=== PATIENT | female | born 1965 | race American Indian/Alaskan Native ===

== ENCOUNTER 2019-03-02 11:28 | Emergency (ER) | payer OTHER ==
[2019-03-02 11:43] VITALS: BP 132/81
--- NOTE | 2019-03-02 11:43 | Event Note ---
ED Screening Note Date of service: 03/02/19 Time: 11:39 ED Screening Note: This is a 53 y.o. F. that presents to the ER with swelling and pain to distal left 3rd finger for 3 days. Warm soaks with peroxide and alcohol with no improvement of symptoms. Reports worsening pain. No sure if she injured finger. PMH of HTN and HIV This initial assessment/diagnostic orders/clinical plan/treatment(s) is/are subject to change based on patients health status, clinical progression and re-assessment by fellow clinical providers in the ED. Further treatment and workup at subsequent clinical providers discretion. Patient/guardian urged not to elope from the ED as their condition may be serious if not clinically assessed and managed. Initial orders include: XR left fingers
--- NOTE | 2019-03-02 13:37 | XRay Report ---
LEFT FINGERS HISTORY: Swelling of the distal third digit. COMPARISON: None. TECHNIQUE: 3 views of the left middle finger were obtained. Additional views of the rest of the digit s are also included. FINDINGS: Bones: No fracture or dislocation. Joint spaces: Maintained. Soft tissues: Mild soft tissue swelling of the terminal tuft of the middle finger. No soft tissue air or foreign body. Additional findings: None. IMPRESSION: 1. Soft tissue inflammation of the distal middle finger and no bone or joint abnormality. 2. No foreign body or signs of gas producing infection. Signer Name: Lamont Alvarado MD Signed: 03/02/2019 1:33 PM Workstation Name: [id number]
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
== END 2019-03-02 15:16 | disposition home or self-care (01) ==
LOC: ED 11:28
DX: L03.012 Cellulitis of left finger (principal); F17.200 Nicotine dependence, unspecified, uncomplicated; Z21 Asymptomatic human immunodeficiency virus [HIV] infection status; Z98.890 Other specified postprocedural states; Z79.899 Other long term (current) drug therapy

== ENCOUNTER 2021-01-06 06:00 | Emergency (ER) | payer SELFPAY ==
[2021-01-06] MEDS ORDERED: IBUPROFEN 800 MG TAB PO ONE (07:40)
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
[2021-01-06 09:27] VITALS: BP 146/84
== END 2021-01-06 09:27 | disposition home or self-care (01) ==
LOC: ED 06:00
DX: S39.012A Strain of muscle, fascia and tendon of lower back, initial encounter (principal); S13.4XXA Sprain of ligaments of cervical spine, initial encounter; I10 Essential (primary) hypertension; F17.200 Nicotine dependence, unspecified, uncomplicated; F12.90 Cannabis use, unspecified, uncomplicated; Z72.89 Other problems related to lifestyle; Z98.890 Other specified postprocedural states; Z79.899 Other long term (current) drug therapy; V89.2XXA Person injured in unspecified motor-vehicle accident, traffic, initial encounter; Y93.89 Activity, other specified; Y92.488 Other paved roadways as the place of occurrence of the external cause; Y99.8 Other external cause status
CPT/HCPCS: 72040; 72100; 99284

== ENCOUNTER 2021-02-24 19:53 | Emergency (ER) | payer OTHER ==
[2021-02-24 20:14] VITALS: BP 137/84
--- NOTE | 2021-02-24 23:03 | Emergency Department Report ---
ED General Adult HPI - General Chief complaint: Wound/Laceration Stated complaint: SPIDER BITE Source: patient Mode of arrival: Ambulatory Limitations: No Limitations - History of Present Illness Initial comments: Patient is a 55-year-old -[place] female with no past medical history presents to the ED with complaint of acute onset painful swollen erythematous maculopapular rash on posterior right lower leg for the last 1 week. Patient states that she suspects that she may have been bitten by a spider which she did not identify or see. Patient states that in the last 3 days the rash opened up and has been draining thick purulent discharge. Patient denies numbness and tingling or weakness of right leg, dizziness, syncope, fever, chills, nausea, vomiting, chest pain or shortness of breath. MD Complaint: Painful, swollen, erythematous maculopapular rash on right lower leg -: Sudden, week(s) (1) Location: lower extremity (Right lower leg pain due to erythematous maculopapular rash) Radiation: non-radiation Severity scale (0 -10): 6 Quality: aching, sharp Consistency: constant Improves with: none Worsens with: movement Associated Symptoms: denies other symptoms, rash (Erythematous maculopapular nonfluctuant painful mildly swollen rash on right lower leg). denies: confusion, chest pain, cough, diaphoresis, fever/chills, headaches, loss of appetite, malaise, nausea/vomiting, shortness of breath, syncope, weakness Treatments Prior to Arrival: none - Related Data Previous Rx's Medication Instructions Recorded Last Taken Type Acetaminophen/Codeine [Tylenol 1 tab PO Q6H PRN #12 tab 03/02/19 Unknown Rx /Codeine # 3 tab] Cyclobenzaprine [Flexeril] 10 mg PO QHS PRN #10 tablet 01/06/21 Unknown Rx Naproxen 500 mg PO Q12H PRN #12 tablet 01/06/21 Unknown Rx Ibuprofen [Motrin] 800 mg PO Q8HR PRN #30 tablet 02/24/21 Unknown Rx Sulfamethoxazole/Trimethoprim 1 each PO Q12H #20 tablet 02/24/21 Unknown Rx [Bactrim DS TAB] Allergies Allergy/AdvReac Type Severity Reaction Status Date / Time No Known Allergies Allergy Unverified 02/13/16 10:27 ED Review of Systems ROS: Stated complaint: SPIDER BITE Other details as noted in HPI Constitutional: denies: chills, fever Eyes: denies: eye pain, eye discharge, vision change ENT: denies: ear pain, throat pain Respiratory: denies: cough, shortness of breath, wheezing Cardiovascular: denies: chest pain, palpitations Endocrine: no symptoms reported Gastrointestinal: denies: abdominal pain, nausea, diarrhea Genitourinary: denies: urgency, dysuria, discharge Musculoskeletal: arthralgia (Right lower leg pain due to erythematous maculopapular nonfluctuant rash). denies: back pain, joint swelling Skin: rash (Erythematous maculopapular painful mildly swollen nonfluctuant rash on right lower leg). denies: lesions Neurological: denies: headache, weakness, paresthesias Psychiatric: denies: anxiety, depression Hematological/Lymphatic: denies: easy bleeding, easy bruising ED Past Medical Hx - Past Medical History Previous Medical History?: Yes Hx Hypertension: Yes Hx HIV: Yes (anti-virals) Additional medical history: HIV - Surgical History Past Surgical History?: Yes Additional Surgical History: - Social History Smoking Status: Current Every Day Smoker Substance Use Type: Alcohol, Marijuana - Medications Home Medications: Home Medications Medication Instructions Recorded Confirmed Last Taken Type Acetaminophen/Codeine [Tylenol 1 tab PO Q6H PRN #12 tab 03/02/19 Unknown Rx /Codeine # 3 tab] Cyclobenzaprine [Flexeril] 10 mg PO QHS PRN #10 tablet 01/06/21 Unknown Rx Naproxen 500 mg PO Q12H PRN #12 tablet 01/06/21 Unknown Rx Ibuprofen [Motrin] 800 mg PO Q8HR PRN #30 tablet 02/24/21 Unknown Rx Sulfamethoxazole/Trimethoprim 1 each PO Q12H #20 tablet 02/24/21 Unknown Rx [Bactrim DS TAB] ED Physical Exam - General Limitations: No Limitations General appearance: alert, in no apparent distress - Head Head exam: Present: atraumatic, normocephalic, normal inspection - Eye Eye exam: Present: normal appearance, PERRL, EOMI Pupils: Present: normal accommodation - ENT ENT exam: Present: normal exam, normal orophraynx, mucous membranes moist, TM's normal bilaterally, normal external ear exam - Neck Neck exam: Present: normal inspection, full ROM - Respiratory Respiratory exam: Present: normal lung sounds bilaterally. Absent: respiratory distress, wheezes, rales, rhonchi, chest wall tenderness, accessory muscle use, decreased breath sounds - Cardiovascular Cardiovascular Exam: Present: regular rate, normal rhythm, normal heart sounds. Absent: systolic murmur, diastolic murmur, rubs, gallop - GI/Abdominal GI/Abdominal exam: Present: soft, normal bowel sounds. Absent: tenderness, hyperactive bowel sounds, hypoactive bowel sounds, organomegaly - Extremities Exam Extremities exam: Present: normal inspection, full ROM, tenderness (Palpable mild right lower leg tenderness due to erythematous maculopapular nonfluctuant rash), normal capillary refill. Absent: calf tenderness - Back Exam Back exam: Present: normal inspection, full ROM. Absent: tenderness, CVA tenderness (R), CVA tenderness (L), muscle spasm, vertebral tenderness - Neurological Exam Neurological exam: Present: alert, oriented X3, CN II-XII intact, normal gait, reflexes normal - Psychiatric Psychiatric exam: Present: normal affect, normal mood - Skin Skin exam: Present: warm, dry, intact, normal color, rash (Erythematous maculopapular nonfluctuant mildly swollen tender rash on posterior right lower leg) ED Course Vital Signs 02/24/21 20:13 Temperature 98.1 F Pulse Rate 78 Respiratory 16 Rate Blood Pressure 137/84 [Left] O2 Sat by Pulse 98 Oximetry ED Medical Decision Making - Medical Decision Making This is a 55-year-old -[place] female with no past medical history presents to the ED with complaint of acute onset painful swollen erythematous maculopapular rash on posterior right lower leg for the last 1 week. Patient states that she suspects that she may have been bitten by a spider which she did not identify or see. Patient states that in the last 3 days the rash opened up and has been draining thick purulent discharge. In the ED, patient is alert and oriented x3 and is not in any distress. Patient is hemodynamically stable. The swollen mildly tender rash is nonfluctuant with mild erythema around it. Patient was therefore discharged home on pain medications and antibiotics and advised to follow-up with her primary care physician in 7 to 10 days for reevaluation or return to the ED immediately if symptoms get worse. - Differential Diagnosis Cellulitis; folliculitis; cutaneous abscess Critical care attestation.: If time is entered above; I have spent that time in minutes in the direct care of this critically ill patient, excluding procedure time. ED Disposition Clinical Impression: Cellulitis of right lower extremity, Acute folliculitis, Cutaneous abscess of right lower extremity Disposition: HOME / SELF CARE / HOMELESS Is pt being admited?: No Does the pt Need Aspirin: No Condition: Stable Instructions: Cellulitis, Adult, [id number], Skin Abscess, [id number], Folliculitis Additional Instructions: Take medication with food, drink plenty of fluids and follow-up with your primary care physician in 7 to 10 days for reevaluation. Return to the ED immediately if symptoms get worse. Prescriptions: Sulfamethoxazole/Trimethoprim [Bactrim DS TAB] 1 each PO Q12H #20 tablet Ibuprofen [Motrin] 800 mg PO Q8HR PRN #30 tablet PRN Reason: Pain , Severe (7-10) Referrals: [facility] [Provider Group] - 7-10 days Time of Disposition: 23:03 Print Language: SYRIAC
== END 2021-02-25 03:19 | disposition home or self-care (01) ==
LOC: ED 19:53
DX: L03.115 Cellulitis of right lower limb (principal); L73.9 Follicular disorder, unspecified
CPT/HCPCS: 99281

== ENCOUNTER 2021-06-22 13:20 | Emergency (ER) | payer SELFPAY ==
[2021-06-22 13:24] VITALS: BP 154/99
[2021-06-22] MEDS ORDERED: HYDROcodone/ACETAMINOPHEN 5-325 MG TAB PO ONE (13:28)
--- NOTE | 2021-06-22 14:33 | XRay Report ---
LEFT ANKLE 3 VIEWS INDICATION / CLINICAL INFORMATION: L ankle PAIN COMPARISON: None available. FINDINGS: BONES and JOINT(S): No acute fracture or subluxation. No significant arthritis. SOFT TISSUES: No significant abnormality. ADDITIONAL FINDINGS: None. IMPRESSION: 1. No acute findings. LEFT FOOT 3 VIEWS INDICATION / CLINICAL INFORMATION: L ankle PAIN COMPARISON: None available. FINDINGS: BONES and JOINT(S): No acute fracture or subluxation. No significant arthritis. SOFT TISSUES: No significant abnormality. ADDITIONAL FINDINGS: None. IMPRESSION: 1. No acute findings. Signer Name: Carl Metz MD Signed: 06/22/2021 2:29 PM Workstation Name: [id number]
--- NOTE | 2021-06-22 16:09 | Emergency Department Report ---
ED Lower Extremity HPI - General Chief Complaint: Extremity Injury, Lower Stated Complaint: LEFT FOOT PAIN Time Seen by Provider: 06/22/21 13:27 Source: patient, EMS Mode of arrival: Stretcher Limitations: No Limitations - History of Present Illness MD Complaint: foot injury -: Sudden, days(s) Injury: Ankle: Left, Foot: Left Type of Injury: inversion Place: other Severity: moderate Severity scale (0 -10): 5 Improves With: nothing Worsens With: nothing - Related Data Previous Rx's Medication Instructions Recorded Last Taken Type Acetaminophen/Codeine [Tylenol 1 tab PO Q6H PRN #12 tab 03/02/19 Unknown Rx /Codeine # 3 tab] Cyclobenzaprine [Flexeril] 10 mg PO QHS PRN #10 tablet 01/06/21 Unknown Rx Naproxen 500 mg PO Q12H PRN #12 tablet 01/06/21 Unknown Rx Ibuprofen [Motrin] 800 mg PO Q8HR PRN #30 tablet 02/24/21 Unknown Rx Sulfamethoxazole/Trimethoprim 1 each PO Q12H #20 tablet 02/24/21 Unknown Rx [Bactrim DS TAB] Ketorolac [Toradol] 10 mg PO Q6H PRN #14 06/22/21 Unknown Rx Allergies Allergy/AdvReac Type Severity Reaction Status Date / Time No Known Allergies Allergy Unverified 02/13/16 10:27 ED Review of Systems ROS: Stated complaint: LEFT FOOT PAIN Other details as noted in HPI Constitutional: denies: chills, fever Eyes: denies: eye pain, eye discharge, vision change ENT: denies: ear pain, throat pain Respiratory: denies: cough, shortness of breath, wheezing Cardiovascular: denies: chest pain, palpitations Endocrine: no symptoms reported Gastrointestinal: denies: abdominal pain, nausea, diarrhea Genitourinary: denies: urgency, dysuria, discharge Musculoskeletal: denies: back pain, joint swelling, arthralgia Skin: denies: rash, lesions Neurological: denies: headache, weakness, paresthesias Psychiatric: denies: anxiety, depression Hematological/Lymphatic: denies: easy bleeding, easy bruising ED Past Medical Hx - Past Medical History Hx Hypertension: Yes Hx HIV: Yes (anti-virals) Additional medical history: HIV - Surgical History Additional Surgical History: - Social History Smoking Status: Current Every Day Smoker Substance Use Type: Alcohol, Marijuana - Medications Home Medications: Home Medications Medication Instructions Recorded Confirmed Last Taken Type Acetaminophen/Codeine [Tylenol 1 tab PO Q6H PRN #12 tab 03/02/19 Unknown Rx /Codeine # 3 tab] Cyclobenzaprine [Flexeril] 10 mg PO QHS PRN #10 tablet 01/06/21 Unknown Rx Naproxen 500 mg PO Q12H PRN #12 tablet 01/06/21 Unknown Rx Ibuprofen [Motrin] 800 mg PO Q8HR PRN #30 tablet 02/24/21 Unknown Rx Sulfamethoxazole/Trimethoprim 1 each PO Q12H #20 tablet 02/24/21 Unknown Rx [Bactrim DS TAB] Ketorolac [Toradol] 10 mg PO Q6H PRN #14 06/22/21 Unknown Rx ED Physical Exam - General Limitations: No Limitations General appearance: alert, in no apparent distress - Head Head exam: Present: atraumatic, normocephalic - Eye Eye exam: Present: normal appearance - ENT ENT exam: Present: mucous membranes moist - Neck Neck exam: Present: normal inspection - Respiratory Respiratory exam: Present: normal lung sounds bilaterally. Absent: respiratory distress - Cardiovascular Cardiovascular Exam: Present: regular rate, normal rhythm. Absent: systolic murmur, diastolic murmur, rubs, gallop - GI/Abdominal GI/Abdominal exam: Present: soft, normal bowel sounds - Extremities Exam Extremities exam: Present: normal inspection - Back Exam Back exam: Present: normal inspection - Neurological Exam Neurological exam: Present: alert, oriented X3 - Psychiatric Psychiatric exam: Present: normal affect, normal mood - Skin Skin exam: Present: warm, dry, intact, normal color. Absent: rash ED Course Vital Signs 06/22/21 13:23 Temperature 98.7 F Pulse Rate 88 Respiratory 14 Rate Blood Pressure 154/99 [Left] O2 Sat by Pulse 99 Oximetry - Reevaluation(s) Reevaluation #1: 06/22/21 16:07 refused blood , x ray negative pain controlled Critical care attestation.: If time is entered above; I have spent that time in minutes in the direct care of this critically ill patient, excluding procedure time. ED Disposition Clinical Impression: Left ankle sprain Disposition: HOME / SELF CARE / HOMELESS Is pt being admited?: No Does the pt Need Aspirin: No Condition: Stable Instructions: How to Use a Stirrup Ankle Brace, [id number], Ankle Sprain, Phase I Rehab-SportsMed Referrals: TRINIDAD BROWN MD [Primary Care Provider] - 3-5 Days
== END 2021-06-22 16:28 | disposition home or self-care (01) ==
LOC: ED 13:20
DX: S93.402A Sprain of unspecified ligament of left ankle, initial encounter (principal); X58.XXXA Exposure to other specified factors, initial encounter; Y93.89 Activity, other specified; Y92.89 Other specified places as the place of occurrence of the external cause; Y99.8 Other external cause status; I10 Essential (primary) hypertension; B20 Human immunodeficiency virus [HIV] disease; Z98.890 Other specified postprocedural states
CPT/HCPCS: 99283

== ENCOUNTER 2021-09-15 18:37 | Emergency (ER) | payer SELFPAY ==
[2021-09-15] MEDS ORDERED: MORPHINE 4 MG/1 ML INJ IV ONE (21:01)
--- NOTE | 2021-09-15 21:09 | Event Note ---
ED Screening Note Date of service: 09/18/21 Time: 21:09 ED Screening Note: 56-year-old female presents to the clinic with low back pain. Patient states that she has been laying supine for the last 3 days unable to sit up upright. Patient stated 3 days ago she had a ground-level fall. Patient states that she also states that she had sex later that day and unsure which one cause her to injury her back . Patient states that she has been using a bucket to urinate. She states pain is a 10 out of 10. This initial assessment/diagnostic orders/clinical plan/treatment(s) is/are subject to change based on patients health status, clinical progression and re- assessment by fellow clinical providers in the ED. Further treatment and workup at subsequent clinical providers discretion. Patient/guardian urged not to elope from the ED as their condition may be serious if not clinically assessed and managed. Initial orders include:
[2021-09-15] MEDS ORDERED: KETOROLAC 30 MG/1 ML INJ IV ONE (21:30)
[2021-09-15] MEDS ORDERED: HYDROmorphone 0.5 MG/0.5 ML INJ IV ONE (21:31)
[2021-09-15] MEDS ORDERED: SODIUM CHLORIDE 0.9% 1000 ML 1,000 ML IV ONE (21:31)
--- NOTE | 2021-09-15 21:56 | Emergency Department Report ---
ED Back Pain/Injury HPI - General Chief Complaint: Back Pain/Injury Stated Complaint: BACK PAIN Time Seen by Provider: 09/15/21 21:16 Source: patient, EMS Limitations: No Limitations - History of Present Illness Initial Comments: 56-year-old female the past medical history of HIV with undetectable viral load currently on antiretrovirals and hypertension presents to the hospital complaining of right lower back pain for the last 3 days feels like a muscle spasm. Pain is 10/10 intensity worse with movement, palpation, and ambulation. For the past 3 days patient has been lying on her floor unable to get up secondary to pain and has been urinating in a bucket nearby. She denies lower extremity numbness, weakness, or incontinence. She denies history of previous significant back injury, chronic pain, IV drug abuse, or fever. Patient received fentanyl in route with temporary relief and received additional morphine prior to my evaluation and states pain is somewhat improving. The day prior to pain onset patient had 2 separate incidents that might have caused injury. While walking her dog she stepped off a curb after it ran into the street and fell forward landing on her stomach. She did not endorse back pain and was able to walk immediately afterwards. That evening she had intercourse with her partner and tried a new sexual physician called the "Pelican". She was uncomfortable during that position but did not have immediate pain and returned to her residence. The next morning she had pain with inability to get up for the past 3 days and laid on the floor until today. - Related Data Previous Rx's Medication Instructions Recorded Last Taken Type Acetaminophen/Codeine [Tylenol 1 tab PO Q6H PRN #12 tab 03/02/19 Unknown Rx /Codeine # 3 tab] Cyclobenzaprine [Flexeril] 10 mg PO QHS PRN #10 tablet 01/06/21 Unknown Rx Ibuprofen [Motrin] 800 mg PO Q8HR PRN #30 tablet 02/24/21 Unknown Rx Sulfamethoxazole/Trimethoprim 1 each PO Q12H #20 tablet 02/24/21 Unknown Rx [Bactrim DS TAB] Ketorolac [Toradol] 10 mg PO Q6H PRN #14 06/22/21 Unknown Rx Cyclobenzaprine HCl [Flexeril 5 MG 5 mg PO TID PRN #20 tab 09/16/21 Unknown Rx TAB] HYDROcodone/APAP 5-325 [[place] 1 each PO Q6HR PRN #15 tablet 09/16/21 Unknown Rx 5/325] Naproxen 500 mg PO Q12H PRN #30 tablet 09/16/21 Unknown Rx Nitrofurantoin Barry/M-Cryst 100 mg PO BID #10 capsule 09/16/21 Unknown Rx [Macrobid CAP] Allergies Allergy/AdvReac Type Severity Reaction Status Date / Time No Known Allergies Allergy Unverified 02/13/16 10:27 ED Review of Systems ROS: Stated complaint: BACK PAIN Other details as noted in HPI Comment: All other systems reviewed and negative ED Past Medical Hx - Past Medical History Hx Hypertension: Yes Hx HIV: Yes (anti-virals) Additional medical history: HIV - Surgical History Additional Surgical History: - Social History Smoking Status: Current Every Day Smoker Substance Use Type: Alcohol, Marijuana - Medications Home Medications: Home Medications Medication Instructions Recorded Confirmed Last Taken Type Acetaminophen/Codeine [Tylenol 1 tab PO Q6H PRN #12 tab 03/02/19 Unknown Rx /Codeine # 3 tab] Cyclobenzaprine [Flexeril] 10 mg PO QHS PRN #10 tablet 01/06/21 Unknown Rx Ibuprofen [Motrin] 800 mg PO Q8HR PRN #30 tablet 02/24/21 Unknown Rx Sulfamethoxazole/Trimethoprim 1 each PO Q12H #20 tablet 02/24/21 Unknown Rx [Bactrim DS TAB] Ketorolac [Toradol] 10 mg PO Q6H PRN #14 06/22/21 Unknown Rx Cyclobenzaprine HCl [Flexeril 5 MG 5 mg PO TID PRN #20 tab 09/16/21 Unknown Rx TAB] HYDROcodone/APAP 5-325 [[place] 1 each PO Q6HR PRN #15 tablet 09/16/21 Unknown Rx 5/325] Naproxen 500 mg PO Q12H PRN #30 tablet 09/16/21 Unknown Rx Nitrofurantoin Barry/M-Cryst 100 mg PO BID #10 capsule 09/16/21 Unknown Rx [Macrobid CAP] ED Physical Exam - General Limitations: No Limitations - Other Other exam information: General: No acute distress Head: Atraumatic Eyes: normal appearance ENT: Moist mucous membranes Neck: Normal appearance, no midline tenderness Chest: Clear to auscultation bilaterally CV: Regular rate and rhythm Abdomen: Soft, normal bowel sounds, nontender, nondistended, no rebound or guarding Back: Right lower back paraspinal muscle tenderness extending down to pelvis Extremity: Normal inspection, full range of motion Neuro: Alert O x 3, no facial asymmetry, speech clear, no gross motor sensory deficit Psych: Appropriate behavior Skin: No rash ED Course Vital Signs 09/15/21 09/15/21 09/15/21 18:53 21:12 21:53 Temperature 98.6 F Pulse Rate 84 Respiratory 18 18 20 Rate Blood Pressure 148/98 [Left] O2 Sat by Pulse 99 Oximetry 09/16/21 09/16/21 00:57 02:24 Temperature Pulse Rate 74 Respiratory 16 98 H Rate Blood Pressure 127/84 [Left] O2 Sat by Pulse 16 L Oximetry - Reevaluation(s) Reevaluation #1: 09/16/21 00:03 Patient reassessed after receiving pain medication. Patient states she is feeling a lot better and able to sit up in bed 09/16/21 00:45 Patient still unable to ambulate secondary to pain even though pain has improved. Additional meds ordered ED Medical Decision Making - Lab Data Result diagrams: 09/15/21 22:04 09/15/21 22:04 Lab Results 09/15/21 09/15/21 09/15/21 Range/Units 22:04 22:04 23:17 WBC 8.1 (4.5-11.0) K/mm3 RBC 4.23 (3.65-5.03) M/mm3 Hgb 12.7 (10.1-14.3) gm/dl Hct 38.2 (30.3-42.9) % MCV 90 (79-97) fl MCH 30 (28-32) pg MCHC 33 (30-34) % RDW 13.1 L (13.2-15.2) % Plt Count 177 (140-440) K/mm3 Lymph % (Auto) 13.6 (13.4-35.0) % Barry % (Auto) 6.6 (0.0-7.3) % Eos % (Auto) 0.7 (0.0-4.3) % Baso % (Auto) 0.4 (0.0-1.8) % Lymph # (Auto) 1.1 L (1.2-5.4) K/mm3 Barry # (Auto) 0.5 (0.0-0.8) K/mm3 Eos # (Auto) 0.1 (0.0-0.4) K/mm3 Baso # (Auto) 0.0 (0.0-0.1) K/mm3 Seg Neutrophils % 78.7 H (40.0-70.0) % Seg Neutrophils # 6.4 (1.8-7.7) K/mm3 Sodium 138 (137-145) mmol/L Potassium 3.4 L (3.6-5.0) mmol/L Chloride 106.9 (98-107) mmol/L Carbon Dioxide 19 L (22-30) mmol/L Anion Gap 16 mmol/L BUN 13 (7-17) mg/dL Creatinine 0.8 (0.6-1.2) mg/dL Estimated GFR > 60 ml/min BUN/Creatinine Ratio 16 % Glucose 127 H (65-100) mg/dL Calcium 8.3 L (8.4-10.2) mg/dL Total Bilirubin 0.40 (0.1-1.2) mg/dL AST 17 (5-40) units/L ALT 10 (7-56) units/L Alkaline Phosphatase 54 (35-129) units/L Total Creatine Kinase 328 H (30-135) units/L Total Protein 7.3 (6.3-8.2) g/dL Albumin 2.9 L (3.9-5) g/dL Albumin/Globulin Ratio 0.7 % Urine Color Yellow (Yellow) Urine Turbidity Clear (Clear) Urine pH 5.0 (5.0-7.0) Ur Specific Roscoe 1.030 (1.003-1.030) Urine Protein 30 mg/dl (Negative) mg/dL Urine Glucose (UA) Neg (Negative) mg/dL Urine Ketones Neg (Negative) mg/dL Urine Blood Sm (Negative) Urine Nitrite Neg (Negative) Urine Bilirubin Neg (Negative) Urine Urobilinogen 2.0 (<2.0) mg/dL Ur Leukocyte Esterase Lg (Negative) Urine WBC (Auto) 21.0 H (0.0-6.0) /HPF Urine RBC (Auto) 5.0 (0.0-6.0) /HPF U Epithel Cells (Auto) 3.0 (0-13.0) /HPF Urine Bacteria (Auto) 1+ (Negative) /HPF Urine Mucus 1+ /HPF - Radiology Data Radiology results: report reviewed CT lumbar spine wo con INDICATION / CLINICAL INFORMATION: back pain after fall. TECHNIQUE: Axial CT imaging of the lumbar spine was obtained without contrast. Coronal and sagittal reformatted imaging obtained and reviewed. All CT scans at this location are performed using CT dose reduction for ALARA by means of automated exposure control. COMPARISON: Radiographs of the lumbar spine 01/06/2021 FINDINGS: No fracture of the lumbar spine. Visualized bilateral lower ribs are intact as well. Alignment is normal. Vertebral body heights and disc spaces are fairly well-maintained with the exception of some mild degenerative disc disease at L2-L3. This correlates with degenerative disc disease noted on prior radiographs, 01/06/2021. Moderate facet degenerative changes are seen throughout the spine with severe degenerative change noted at L5-S1. Mild central disc bulge is noted at L3-L4. No soft tissue abnormality is noted. IMPRESSION: 1. No lumbar spine fracture or traumatic malalignment is noted. 2. Mild degenerative disc disease, L2-L3. 3. Mild central disc bulge without encroachment on nerve roots is noted at L3- L4. - Medical Decision Making 56-year-old female presents to the hospital with right flank/lower back pain. Patient did not appear to have any significant traumatic injury based on history. CT does not reveal acute abnormality. No neurologic symptoms on examination. Pain improved with ED treatment. Urine positive for infection. Patient medicated with Macrobid. Will be treated for symptomatic pain relief for muscle strain as well as UTI abx. P.o. potassium provided in the ED for mild hypokalemia as per RN note pain 2/10 at time of discharge. pre discharge vital signs are reversed sat 98% and rr 16 - Differential Diagnosis Strain, contusion, fracture, herniated Critical Care Time: No Critical care attestation.: If time is entered above; I have spent that time in minutes in the direct care of this critically ill patient, excluding procedure time. ED Disposition Clinical Impression: Low back strain, UTI (urinary tract infection), Hypokalemia Disposition: 01 HOME / SELF CARE / HOMELESS Is pt being admited?: No Does the pt Need Aspirin: No Condition: Stable Instructions: Urinary Tract Infection, Adult, [id number], Lumbar Strain Additional Instructions: Take the medication as prescribed. Follow-up with your doctor or doctor/clinic provided. Return if symptoms worsen as indicated by your discharge instructions. Prescriptions: Cyclobenzaprine HCl [Flexeril 5 MG TAB] 5 mg PO TID PRN #20 tab PRN Reason: Muscle Spasm Nitrofurantoin Barry/M-Cryst [Macrobid CAP] 100 mg PO BID #10 capsule Naproxen 500 mg PO Q12H PRN #30 tablet PRN Reason: Pain , Severe (7-10) HYDROcodone/APAP 5-325 [[place] 5/325] 1 each PO Q6HR PRN #15 tablet PRN Reason: Pain Referrals: BIA GOMEZ II, MD [Staff Physician] - 3-5 Days (Neurosurgeon/back pain specialist) JENNIFER KWAN MD [Staff Physician] - 3-5 Days (Primary care doctor) [facility] [Provider Group] - 3-5 Days (Primary care clinic) Time of Disposition: 00:06
--- NOTE | 2021-09-15 22:03 | Cat Scan Report ---
CT lumbar spine wo con INDICATION / CLINICAL INFORMATION: back pain after fall. TECHNIQUE: Axial CT imaging of the lumbar spine was obtained without contrast. Coronal and sagittal reformatted imaging obtained and reviewed. All CT scans at this location are performed using CT dose reduction f or ALARA by means of automated exposure control. COMPARISON: Radiographs of the lumbar spine 01/06/2021 FINDINGS: No fracture of the lumbar spine. Visualized bilateral lower ribs are intact as well. Alignment is nor mal. Vertebral body heights and disc spaces are fairly well-maintained with the exception of some mil d degenerative disc disease at L2-L3. This correlates with degenerative disc disease noted on prior r adiographs, 01/06/2021. Moderate facet degenerative changes are seen throughout the spine with severe degenerative change not ed at L5-S1. Mild central disc bulge is noted at L3-L4. No soft tissue abnormality is noted. IMPRESSION: 1. No lumbar spine fracture or traumatic malalignment is noted. 2. Mild degenerative disc disease, L2-L3. 3. Mild central disc bulge without encroachment on nerve roots is noted at L3-L4. Signer Name: Camila Holguin MD Signed: 09/15/2021 9:58 PM Workstation Name: [id number]
[2021-09-15 22:21] LABS: Basophils % (Auto) 0.4 % (0.0-1.8); Eosinophils # (Auto) 0.1 K/mm3 (0.0-0.4); Eosinophils % (Auto) 0.7 % (0.0-4.3); Hematocrit 38.2 % (30.3-42.9); Hemoglobin 12.7 gm/dl (10.1-14.3); Lymphocytes # (Auto) 1.1 K/mm3 (1.2-5.4); Lymphocytes % (Auto) 13.6 % (13.4-35.0); Mean Corpuscular HGB Conc 33 % (30-34); Mean Corpuscular Volume 90 fl (79-97); Monocytes # (Auto) 0.5 K/mm3 (0.0-0.8); Monocytes % (Auto) 6.6 % (0.0-7.3); Platelet Count 177 K/mm3 (140-440); Red Blood Count 4.23 M/mm3 (3.65-5.03); Red Cell Distribution Width 13.1 % (13.2-15.2)
[2021-09-15 22:42] LABS: Alanine Aminotransferase 10 units/L (7-56); Albumin 2.9 g/dL (3.9-5); BUN/Creatinine Ratio 16; Blood Urea Nitrogen 13 mg/dL (7-17); Calcium 8.3 mg/dL (8.4-10.2); Hemolysis Index 5
[2021-09-15 23:39] LABS: Bacteria,Urine 1+ /HPF (Negative); Bilirubin,Urine NEG (Negative); Blood,Urine SM (Negative); Color,Urine Yellow (Yellow); Mucus,Urine 1+ /HPF
[2021-09-16] MEDS ORDERED: NITROFURANTOIN MONOHYD/M-CRYST 100 MG CAP PO ONE (00:02)
[2021-09-16] MEDS ORDERED: POTASSIUM CHLORIDE ER 20 MEQ TAB PO ONE (00:03)
[2021-09-16] MEDS ORDERED: HYDROmorphone 1 MG/1 ML INJ IV ONE (00:44)
[2021-09-16 02:25] VITALS: BP 127/84
== END 2021-09-16 02:25 | disposition home or self-care (01) ==
LOC: ED 18:37
DX: S39.012A Strain of muscle, fascia and tendon of lower back, initial encounter (principal); N39.0 Urinary tract infection, site not specified; E87.6 Hypokalemia; I10 Essential (primary) hypertension; Z21 Asymptomatic human immunodeficiency virus [HIV] infection status; Z79.899 Other long term (current) drug therapy; F17.200 Nicotine dependence, unspecified, uncomplicated; X58.XXXA Exposure to other specified factors, initial encounter; Y93.89 Activity, other specified; Y92.89 Other specified places as the place of occurrence of the external cause; Y99.8 Other external cause status
CPT/HCPCS: 36415; 72131; 80053; 81001; 82550; 85025; 87086; 96361; 96374; 96375; 96376; 99284; J1170; J1885; J2270; J7030

== ENCOUNTER 2021-10-13 19:09 | Emergency (ER) | payer SELFPAY ==
[2021-10-13] MEDS ORDERED: MORPHINE 4 MG/1 ML INJ IV ONE (21:21)
[2021-10-13] MEDS ORDERED: SODIUM CHLORIDE 0.9% 1000 ML 1,000 ML IV ONE (21:21)
[2021-10-13] MEDS ORDERED: ONDANSETRON 4 MG/2 ML INJ IV ONE (21:21)
--- NOTE | 2021-10-13 21:24 | Emergency Department Report ---
ED Abdominal Pain HPI - General Chief Complaint: Abdominal Pain Stated Complaint: ABD PAIN Time Seen by Provider: 10/13/21 21:12 Source: patient Mode of arrival: Stretcher Limitations: No Limitations - History of Present Illness Initial Comments: Patient is a 56-year-old female brought in from home by EMS with complaint of pain in her right mid abdomen and right lower quadrant beginning yesterday. She describes her pain as a sharp sensation. She denies any nausea or vomiting. No change in bowel habits or dysuria. No fever or chills. She denies any past abdominal surgical history - Related Data Previous Rx's Medication Instructions Recorded Last Taken Type Acetaminophen/Codeine [Tylenol 1 tab PO Q6H PRN #12 tab 03/02/19 Unknown Rx /Codeine # 3 tab] Cyclobenzaprine [Flexeril] 10 mg PO QHS PRN #10 tablet 01/06/21 Unknown Rx Ibuprofen [Motrin] 800 mg PO Q8HR PRN #30 tablet 02/24/21 Unknown Rx Sulfamethoxazole/Trimethoprim 1 each PO Q12H #20 tablet 02/24/21 Unknown Rx [Bactrim DS TAB] Ketorolac [Toradol] 10 mg PO Q6H PRN #14 06/22/21 Unknown Rx Cyclobenzaprine HCl [Flexeril 5 MG 5 mg PO TID PRN #20 tab 09/16/21 Unknown Rx TAB] HYDROcodone/APAP 5-325 [[place] 1 each PO Q6HR PRN #15 tablet 09/16/21 Unknown Rx 5/325] Naproxen 500 mg PO Q12H PRN #30 tablet 09/16/21 Unknown Rx Nitrofurantoin [place]/M-Cryst 100 mg PO BID #10 capsule 09/16/21 Unknown Rx [Macrobid CAP] bisacodyL [Dulcolax] 5 mg PO DAILY PRN #7 tab 10/14/21 Unknown Rx Allergies Allergy/AdvReac Type Severity Reaction Status Date / Time No Known Allergies Allergy Unverified 02/13/16 10:27 ED Review of Systems ROS: Stated complaint: ABD PAIN Other details as noted in HPI Comment: All other systems reviewed and negative Constitutional: denies: chills, fever Respiratory: denies: cough, shortness of breath, wheezing Cardiovascular: denies: chest pain, palpitations Gastrointestinal: abdominal pain. denies: nausea, diarrhea Genitourinary: denies: urgency, dysuria, discharge Musculoskeletal: denies: back pain, joint swelling, arthralgia Skin: denies: rash, lesions Neurological: denies: headache, weakness, paresthesias Psychiatric: denies: anxiety, depression ED Past Medical Hx - Past Medical History Previous Medical History?: Yes Hx Hypertension: Yes Hx HIV: Yes (anti-virals) Additional medical history: HIV - Surgical History Past Surgical History?: Yes Additional Surgical History: - Social History Smoking Status: Current Every Day Smoker Substance Use Type: None - Medications Home Medications: Home Medications Medication Instructions Recorded Confirmed Last Taken Type Acetaminophen/Codeine [Tylenol 1 tab PO Q6H PRN #12 tab 03/02/19 Unknown Rx /Codeine # 3 tab] Cyclobenzaprine [Flexeril] 10 mg PO QHS PRN #10 tablet 01/06/21 Unknown Rx Ibuprofen [Motrin] 800 mg PO Q8HR PRN #30 tablet 02/24/21 Unknown Rx Sulfamethoxazole/Trimethoprim 1 each PO Q12H #20 tablet 02/24/21 Unknown Rx [Bactrim DS TAB] Ketorolac [Toradol] 10 mg PO Q6H PRN #14 06/22/21 Unknown Rx Cyclobenzaprine HCl [Flexeril 5 MG 5 mg PO TID PRN #20 tab 09/16/21 Unknown Rx TAB] HYDROcodone/APAP 5-325 [[place] 1 each PO Q6HR PRN #15 tablet 09/16/21 Unknown Rx 5/325] Naproxen 500 mg PO Q12H PRN #30 tablet 09/16/21 Unknown Rx Nitrofurantoin [place]/M-Cryst 100 mg PO BID #10 capsule 09/16/21 Unknown Rx [Macrobid CAP] bisacodyL [Dulcolax] 5 mg PO DAILY PRN #7 tab 10/14/21 Unknown Rx ED Physical Exam - General Limitations: No Limitations General appearance: alert, in no apparent distress - Head Head exam: Present: atraumatic, normocephalic - Neck Neck exam: Present: normal inspection - Respiratory Respiratory exam: Present: normal lung sounds bilaterally. Absent: respiratory distress - Cardiovascular Cardiovascular Exam: Present: regular rate, normal rhythm, normal heart sounds - GI/Abdominal GI/Abdominal exam: Present: soft, tenderness (Tenderness in right lower quadrant). Absent: distended, guarding, rebound - Rectal Rectal exam: Present: deferred - Neurological Exam Neurological exam: Present: alert, oriented X3 - Psychiatric Psychiatric exam: Present: normal affect, normal mood - Skin Skin exam: Present: warm, dry, intact, normal color ED Course Vital Signs 10/13/21 10/13/21 19:09 22:51 Temperature 98 F 99.9 F H Pulse Rate 88 82 Respiratory 18 24 Rate Blood Pressure 170/112 Blood Pressure 167/100 [Left] O2 Sat by Pulse 97 96 Oximetry ED Medical Decision Making - Lab Data Result diagrams: 10/13/21 22:36 10/13/21 22:36 - Medical Decision Making CBC and CMP grossly unremarkable. CT abdomen pelvis reveals moderate amount of stool in the terminal ileum and cecum as well as in the proximal large bowel suggestive of constipation. There are no acute findings otherwise. I discussed results with patient. Recommended high-fiber diet and good water intake and will discharge home with stool softener. Critical care attestation.: If time is entered above; I have spent that time in minutes in the direct care of this critically ill patient, excluding procedure time. ED Disposition Clinical Impression: Constipation Disposition: 01 HOME / SELF CARE / HOMELESS Is pt being admited?: No Condition: Stable Instructions: Abdominal Pain (ED), Constipation, Adult, High-Fiber Diet Time of Disposition: 01:39
[2021-10-13 23:00] LABS: Basophils % (Auto) 0.2 % (0.0-1.8); Eosinophils # (Auto) 0.1 K/mm3 (0.0-0.4); Eosinophils % (Auto) 0.9 % (0.0-4.3); Hematocrit 33.7 % (30.3-42.9); Hemoglobin 11.3 gm/dl (10.1-14.3); Lymphocytes # (Auto) 1.8 K/mm3 (1.2-5.4); Lymphocytes % (Auto) 29.3 % (13.4-35.0); Mean Corpuscular HGB Conc 33 % (30-34); Mean Corpuscular Volume 89 fl (79-97); Monocytes # (Auto) 0.9 K/mm3 (0.0-0.8); Platelet Count 255 K/mm3 (140-440); Red Blood Count 3.78 M/mm3 (3.65-5.03); Red Cell Distribution Width 13.6 % (13.2-15.2)
[2021-10-13 23:05] VITALS: BP 167/100
[2021-10-13 23:20] LABS: Alanine Aminotransferase 9 units/L (7-56); Albumin 3.3 g/dL (3.9-5); Blood Urea Nitrogen 8 mg/dL (7-17); Calcium 8.5 mg/dL (8.4-10.2); Hemolysis Index 0
[2021-10-14 00:01] LABS: BUN/Creatinine Ratio 11; Bilirubin,Direct < 0.2 mg/dL (0-0.2)
[2021-10-14] MEDS ORDERED: HYDROmorphone 1 MG/1 ML INJ IV ONE (00:37)
--- NOTE | 2021-10-14 01:17 | Cat Scan Report ---
CT ABDOMEN AND PELVIS WITH CONTRAST INDICATION / CLINICAL INFORMATION: RLQ pain. TECHNIQUE: Axial CT images were obtained through the abdomen and pelvis after 100 cc Omnipaque [address] scans at this location are performed using CT dose reduction for ALARA by means of automated exposure control. COMPARISON: None available. FINDINGS: LOWER CHEST: Lower lobe atelectasis and/or scarring suggested. Fusiform enlargement of the ascending aorta is present measuring 4.1 cm. The visualized aorta is otherwise unremarkable. LIVER: Diffuse low attenuation compatible with hepatic steatosis. GALLBLADDER / BILE DUCTS: No significant abnormality. Biliary ducts grossly unremarkable. SPLEEN: No significant abnormality. PANCREAS: No significant abnormality. ADRENALS: No significant abnormality. KIDNEYS/URETERS: No stones or hydronephrosis. No solid renal lesion. STOMACH / DUODENUM / SMALL BOWEL: The stomach, duodenum, and small bowel demonstrate no significant a bnormality. No specific abnormality of the mesentery demonstrated. Moderate stool within the terminal ileum. COLON: Moderate stool within the cecum and throughout the proximal large bowel. Nonobstructing lesion s. No wall thickening or inflammatory changes. APPENDIX: No significant abnormality. PERITONEUM: No free air or free fluid are present within the abdomen or pelvis. LYMPH NODES: No significant adenopathy. AORTA / ARTERIES: No significant abnormality. IVC / VEINS: No significant abnormality. URINARY BLADDER: No significant abnormality. REPRODUCTIVE ORGANS: No significant abnormality. ADDITIONAL ABDOMINAL/PELVIC FINDINGS: None. SKELETAL SYSTEM: No significant abnormality. IMPRESSION: 1. Moderate amount of stool within the cecum and terminal ileum with additional stool through the pro ximal large bowel. No inflammatory changes, wall thickening, or findings to suggest acute process. Th is is thought to reflect stasis of stool and/or constipation. Signer Name: Telly Tena II, MD Signed: 10/14/2021 1:13 AM Workstation Name: [id number]
[2021-10-14 01:25] LABS: Bacteria,Urine 2+ /HPF (Negative); Mucus,Urine 1+ /HPF
[2021-10-14 01:27] LABS: Bilirubin,Urine Negative (Negative); Color,Urine Yellow (Yellow)
[2021-10-14 01:28] LABS: Blood,Urine Small (Negative)
== END 2021-10-14 02:18 | disposition home or self-care (01) ==
LOC: ED 19:09
DX: K59.00 Constipation, unspecified (principal); I10 Essential (primary) hypertension; Z21 Asymptomatic human immunodeficiency virus [HIV] infection status; Z98.890 Other specified postprocedural states; F17.290 Nicotine dependence, other tobacco product, uncomplicated
CPT/HCPCS: 36415; 74177; 80048; 80076; 81001; 83690; 85025; 87086; 96361; 96374; 96375; 99284; J1170; J2270; J2405; J7030; Q9967